=== PATIENT | male | born 1965 | race Caucasian/White ===

== ENCOUNTER 2019-05-19 09:17 | Outpatient (CLI) | payer OTHER, SELFPAY ==
[2019-05-19 10:11] LABS: BUN 11 mg/dL (7-18); Chloride 105 mmol/L (98-107); Glucose 114 mg/dL (70-100); Potassium 4.7 mmol/L (3.5-5.1); Sodium 142 mmol/L (136-145)
== END 2019-05-19 09:37 ==
PROVIDERS: PCP Family Medicine; Visit Provider Family Medicine
DX: E78.5 Hyperlipidemia, unspecified (principal)
CPT/HCPCS: 36415; 80048

== ENCOUNTER 2020-06-19 01:26 | Outpatient (CLI) | payer OTHER, SELFPAY ==
--- NOTE | 2020-06-19 09:00 | ETT_ITS ---
APPROVED REPORT Exam: Exercise Treadmill Patient Location: Out-Patient Room/Bed: Stress Nurse: Kennedi Wise RN BMI: 38.00 Baseline Rhythm: Sinus Rhythm Indications: Chest tightness with TIM and diaphoresis. Medical History Medical History: Smoking, Hyperlipidemia, GERD Cardiac Medications: Atorvastatin. Aspirin. Omeprazole. Allergies: Penicillins Cardiac Risk Factors: Hyperlipidemia, FHX of CAD, Smoking Pretest Chest Pain Characteristics: No chest pain Exercise History: Sedentary Lung Sounds: Clear to auscultation Heart Sounds: Regular Stress Test Details Test: Exercise stress testing was performed using a Uziel protocol. Rest Stress HR Resting HR Supine: 88 bpm Max Heart Rate (APMHR): 165 bpm Resting HR Standin bpm Target HR (85% APMHR): 140 bpm Max HR Achieved: 154 bpm % of APMHR: 93 Recovery HR: 101 bpm HR response to stress: Normal HR response to stress BP Resting BP Supine: 144/82 mmHg Resting BP Standin/82 mmHg Max BP: 196/62 mmHg Recovery BP: 142/76 mmHg BP response to stress: Normal blood pressure response to stress. ECG Resting ECG: Sinus Rhythm Stress ECG: Sinus Tachycardia ST Change: no significant ST segment changes noted. Arrhythmia: None Recovery ECG: Sinus Rhythm Recovery ST Change: Normal Recovery Arrhythmia: None Clinical Reason for Termination: Dyspnea Stress Symptoms: Dyspnea Exercise duration: 7 min31 sec Highest Stage Reached: Stage 3: 3.4 mph at 14% grade. Exercise capacity: 9.41 METs Stress ECG Conclusion 1. The patient exercised for 7 minutes 30 seconds (9 METs). Exercise was stopped due to dyspnea. 2. There was no evidence of ischemia on the EKG portion of the exam. 3. The Wallis Score ( 7) estimates an annual cardiovascular mortality of 0% and a five year survival of 95%. Using the Wallis Score there is a low probability of any angiographic coronary disease. Stress Test Summary STAGE Time (mins) Speed (mph) Grade (%) HR BP SYMPTOMS METS Supine 88 144/82 Standing 91 136/82 1 3 1.7 10 129 152/78 SOB 4.6 2 6 2.5 12 143 174/70 SOB 7 1 min recovery 138 196/62 3 min recovery 108 180/72 SOB resolved. 6 min recovery 101 142/76
== END 2020-06-19 01:46 ==
PROVIDERS: PCP Nurse Practitioner; Visit Provider Family Medicine
DX: R06.09 Other forms of dyspnea; R61 Generalized hyperhidrosis; R07.89 Other chest pain; E78.5 Hyperlipidemia, unspecified; F17.210 Nicotine dependence, cigarettes, uncomplicated; Z80.49 Family history of malignant neoplasm of other genital organs
CPT/HCPCS: 93017

== ENCOUNTER 2020-08-01 03:30 | Outpatient (CLI) | payer OTHER, SELFPAY ==
[2020-08-01 11:04] LABS: Hemoglobin A1C 6.9 % (<5.7)
[2020-08-01 11:39] LABS: Calculated LDL 114 mg/dL (<100); Cholesterol 205 mg/dL (<200); HDL Cholesterol 39 mg/dL (40-60); Triglyceride 262 mg/dL (<150)
== END 2020-08-01 03:50 ==
PROVIDERS: PCP Nurse Practitioner; Visit Provider Nurse Practitioner
DX: E78.5 Hyperlipidemia, unspecified (principal); Z13.1 Encounter for screening for diabetes mellitus
CPT/HCPCS: 36415; 80061; 83036

== ENCOUNTER 2020-08-28 02:52 | Outpatient (CLI) | payer OTHER, SELFPAY ==
[2020-08-29 16:57] LABS: COVID-19 RT-PCR UVMMC Result Negative (Negative)
== END 2020-08-28 03:12 ==
PROVIDERS: PCP Nurse Practitioner; Visit Provider Surgery
DX: Z20.828 Contact with and (suspected) exposure to other viral communicable diseases (principal); Z01.818 Encounter for other preprocedural examination
CPT/HCPCS: U0003

== ENCOUNTER 2020-09-02 06:08 | Day surgery (SDC) | payer OTHER, SELFPAY ==
[2020-09-02 06:20] VITALS: BP 141/92; PULSE 93; RESP 18; TEMP 37.2; O2SAT 93
[2020-09-02] MEDS: Lactated Ringers 1,000 ML 80 ML IV (07:03)
--- NOTE | 2020-09-02 07:29 | W.PM.DSUDISC ---
Discharge Plan Disposition Patient Disposition: HOME Condition: Good Discharge Details Reason For Visit: Umbilical hernia repair with mesh Attending Provider: Meka Quach Primary Care Provider: Daya Triplett Home Meds and New Rx's Prescriptions: Continued atorvastatin [Lipitor] 20 mg tablet 20 mg PO HS Qty: 90 RF: 4 omeprazole 40 mg capsule,delayed release(DR/EC) 40 mg PO DAILY Qty: 90 RF: 4 fluoxetine 20 mg capsule 20 mg PO DAILY Qty: 30 RF: 0 bupropion HCl (smoking deter) 150 mg tablet extended release 12 hr 150 mg PO BID Qty: 90 RF: 0 aspirin [Aspir-81] 81 MG tablet,delayed release (DR/EC) 81 mg PO DAILY RF: 0 Discharge Instructions Additional Instructions: The top bandage can be removed tomorrow. The steri strips will usually stick for about a week. When the edges start to curl up, they can be removed. It is okay to shower tomorrow, the water can run over the steri strips Do not swim or soak in a tub for two weeks Call for any concerns including fever, increased pain, vomiting, incision redness or drainage. Some bruising and swelling is expected. Do not lift more than 15 pounds for four weeks. Walking and stairs are fine. Do not drive if on narcotic pain meds or if limited by pain. May use Tylenol alternating with ibuprofen for pain control. Ice is also an option. The maximum dose for Tylenol is 4000 mg/day. May use ibuprofen 800 mg every 8 hours as needed. If concerned about constipation, you may use a stool softener or milk of magnesia. Referrals: Mana Stout PA [[facility] [employer] DESIGN ARCHITECT] - (Return in 10-14 days for postop check) Activity:: Do not lift more than 15 pounds Remove Dressings/Wound Care:: 24 hours Shower/Bathe:: 24 hours Diet:: As Tolerated Discharge Orders Discharge Orders: Discharge Order (Routine); Ordered 09/02/20 Ordered By: Meka Quach DS: Diagnosis Discharge Diagnosis (1) Umbilical hernia: Status: Acute
[2020-09-02] MEDS: CLINDAMYCIN 900 MG/50 ML BAG 50 MG IVPB (07:34)
[2020-09-02] MEDS: Bupivacaine 0.5% Pres-Free 30 ML VIAL (08:30)
[2020-09-02] MEDS: Lidocaine 2% Multi-Dose 50 ML VIAL (08:30)
--- NOTE | 2020-09-02 08:49 | ROE_ITS ---
Date of service: 09/02/20 Time of Service: 08:49 Operative Note Operative Note DATE OF PROCEDURE: 09/02/20 PRE-OP DIAGNOSIS: Umbilical hernia POST-OP DIAGNOSIS: same PROCEDURE: Umbilical hernia repair with mesh SURGEON: Meka Quach YARDING AND FOLDING MACHINE OPERATOR: Mana Stout ANESTHESIA: MAC and local Indications: This 55 year old man presents with a non-reducible, fat-containing umbilical hernia that is bothersome. Procedure Description: The patient was placed supine on the operating table and the periumbilical region prepped and draped sterilely. The periumbilical skin was infiltrated with local anesthetic. A curvilinear incision was made at the lower aspect of the umbilicus. The moderate sized hernia sac was dissected off the posterior umbilical skin sharply. The hernia sac was dissected free of the surrounding subcutaneous tissue with cautery. The hernia sac was opened to reveal omentum. This was reduced with some pressure required. The fascial defect measuring 2 cm. A 4.6 cm (medium) circular Ventralex mesh was placed behind the fascia with the smooth side down. This was sutured in 4 quadrants with buried interrupted 2-0 Prolene sutures. The fascia was closed over the top of the mesh with a running 0 Vicryl stitch. The posterior umbilical skin was tacked down to the fascia with 0 Vicryl and the deep dermis closed with interrupted 0 Vicryl sutures. The skin was then closed with a running 4 Monocryl subcuticular stitch. He tolerated the procedure well and stable to recovery
[2020-09-02 09:20] VITALS: BP 143/83; PULSE 87; RESP 20; TEMP 36.6; O2SAT 93
== END 2020-09-02 09:47 | disposition home or self-care (01) ==
PROVIDERS: PCP Nurse Practitioner; Visit Provider Surgery
PROC: (CPT 49585; principal; 2020-09-02 07:30)
DX: K42.9 Umbilical hernia without obstruction or gangrene (principal); G47.33 Obstructive sleep apnea (adult) (pediatric); F17.210 Nicotine dependence, cigarettes, uncomplicated; K21.9 Gastro-esophageal reflux disease without esophagitis
CPT/HCPCS: 49585; C1781; J1100; J2405; J2704

== ENCOUNTER 2021-06-15 01:48 | Outpatient (CLI) | payer OTHER, SELFPAY ==
[2021-06-15 16:40] LABS: Hemoglobin A1C 6.4 % (<5.7)
[2021-06-15 16:49] LABS: Calculated LDL 80 mg/dL (<100); Cholesterol 199 mg/dL (<200); HDL Cholesterol 51 mg/dL (40-60); Potassium 4.3 mmol/L (3.5-5.1); Triglyceride 342 mg/dL (<150)
== END 2021-06-15 01:49 | disposition home or self-care (01) ==
LOC: LBO 01:48
PROVIDERS: PCP Nurse Practitioner; Visit Provider Nurse Practitioner
DX: I10 Essential (primary) hypertension (principal); E78.5 Hyperlipidemia, unspecified; R73.03 Prediabetes
CPT/HCPCS: 36415; 80061; 82565; 83036; 84132

== ENCOUNTER 2022-07-16 01:17 | Outpatient (CLI) | payer OTHER, SELFPAY ==
[2022-07-16 12:49] LABS: ALT 59 U/L (16-63); AST 63 U/L (15-37); Alkaline Phosphatase 145 U/L (46-116); Anion Gap 9.8 mmol/L (3-11); BUN 9 mg/dL (7-18); Bilirubin, Total 0.3 mg/dL (0.2-1.0); CO2 25.2 mmol/L (21.0-32.0); CREATININE 0.8 mg/dL (0.70-1.30); Calcium 9.2 mg/dL (8.5-10.1); Calculated LDL 84 mg/dL (<100); Chloride 103 mmol/L (98-107); Cholesterol 192 mg/dL (<200); Estimated GFR 103.22 (mL/min/1.73m2); Glucose 128 mg/dL (74-106); HDL Cholesterol 54 mg/dL (40-60); Potassium 4.1 mmol/L (3.5-5.1); Sodium 138 mmol/L (136-145); Total Protein 7.8 g/dL (6.4-8.2); Triglyceride 272 mg/dL (<150)
== END 2022-07-16 01:18 | disposition home or self-care (01) ==
LOC: LOS 01:17
PROVIDERS: PCP Nurse Practitioner Family; Visit Provider Nurse Practitioner Family
DX: I10 Essential (primary) hypertension (principal); E11.9 Type 2 diabetes mellitus without complications; E78.5 Hyperlipidemia, unspecified; E66.9 Obesity, unspecified
CPT/HCPCS: 36415; 80053; 80061

== ENCOUNTER 2023-03-16 15:24 | Outpatient (CLI) | payer OTHER, SELFPAY ==
--- NOTE | 2023-03-16 15:14 | DI.RAD_ITS ---
Exam(s) XR CHEST 2V PA LATERAL EXAM: XR CHEST 2V PA LATERAL CLINICAL HISTORY: SHORTNESS OF BREATH-R06.02. TECHNIQUE: 2D digital imaging was performed. COMPARISON: No exams were available for comparison FINDINGS: 2 views: Heart size is normal. The mediastinum is not widened. Lungs are clear. No infiltrates nor pleural effusions. IMPRESSION: No acute pulmonary findings. DATA REPOSITORY: RADIATION DOSE DELIVERED:
== END 2023-03-16 15:44 ==
LOC: DI 15:25
PROVIDERS: PCP Nurse Practitioner Family; Visit Provider Nurse Practitioner Family
DX: R06.02 Shortness of breath (principal)
CPT/HCPCS: 71046

== ENCOUNTER 2023-03-20 10:35 | Emergency (ER) | payer OTHER, SELFPAY ==
[2023-03-20] VITALS (30 sets, daily range): BP systolic 116–162; BP diastolic 80–93; PULSE 95–124; RESP 9–29; TEMP 37.1; O2SAT 92–96
--- NOTE | 2023-03-20 12:15 | RT.EKG_ITS ---
APPROVED REPORT Exam: Resting ECG Reason for Exam: lightheaded Patient Location: E HR:109 bpm ECG Measurements Heart Rate 109 AXIS OR 133 P 13 QRSd 87 QRS 37 QT 339 T 22 QTc 458 Conclusion Sinus tachycardia...rate> 99 appropriate intervals normal axis no ST segement or T wave abnormalities to suggest occlusive [place]
--- NOTE | 2023-03-20 12:28 | ED.GENADUL_ITS ---
Discharge Plan Disposition Patient Disposition: Home Discharge Details Clinical Impression: Syncope, Alcohol withdrawal Primary Care Provider: Taisha Cabrera ED Provider: Joellen Smart Home Meds and New Rx's Prescriptions: No Action albuterol sulfate 90 mcg/actuation HFA aerosol inhaler 2 inh inhalation Q6H PRN (Reason: shortness of breath or wheezing) Qty: 18 4RF (DME) BreatheRite MDI Spacer Spacer See Rx Instructions .ROUTE .MEDSUPPLY Qty: 1 0RF Rx Instructions: As directed atorvastatin 40 mg tablet 40 mg PO QPM Qty: 90 4RF fluoxetine 20 mg capsule 20 mg PO DAILY Qty: 90 4RF metformin 500 mg tablet 500 mg PO BID Qty: 180 4RF sildenafil [Viagra] 25 mg tablet 25 mg PO .COMPLEX PRN (Reason: sexual activity) Qty: 20 11RF Rx Instructions: 25 mg orally PRN; 1-2 tabs prior to intercourse omeprazole 40 mg capsule,delayed release(DR/EC) 40 mg PO DAILY Qty: 90 3RF lisinopril 40 mg tablet 40 mg PO DAILY Qty: 90 3RF aspirin [Aspir-81] 81 MG tablet,delayed release (DR/EC) 81 mg PO DAILY Discharge Instructions Instructions: Syncope (ED), Alcohol Withdrawal (ED) Additional Instructions: Call your primary care doctor tomorrow to schedule an appointment to be seen to follow up on your visit here. Cardiology should call you tomorrow as well- if you do not hear from them tomorrow call to schedule an appointment. A referral was placed for alcohol detox if you are interested- they will also call you tomorrow. ALCOHOL WITHDRAWAL CAN BE DEADLY- DO NOT STOP COLD TURKEY. Return to the emergency department for new or worsening symptoms including if you feel like you are going to pass out, have chest pain, or if you have any other concerns. Referrals: [facility] [Provider Group] Medical Decision Making 57yo m with hx HTN, prediabetes, HLD, RICCO, presenting for malaise x 2 weeks and presycnope/syncope x several days. Lightheaded with standing for one week, at least one syncope and fall 3-4 days ago. Tachycardiac on arrival, vital signs otherwise reassuring. Not septic. Exam consistent with ETOH withdrawal; tachycardiac, tremulous, slightly anxious. Patient reports drinking a lot and trying to cut back recently, cannot quantify further. EKG sinus tachycardia, appropriate intervals, no ST segment or T wave abnormalities to suggest occlusive [place]. CXR independently reviewed, agree with radiology read; no pneumonia or pneumothorax. Labs ordered and reviewed; CBC & CMP with no actionable abnormalities, reassuring Hg and electrolytes. Troponin negative x 2. Given tachycardia and syncope, d-dimer ordered and was elevated; CT PE ordered and reviewed, no large PE on my view. Pt advised of hepatic fibrosis and to folllowup with PCP. CIWA 6. Given 2mg PO ativan and tachycardiac and tremors improved, HR in mid 90's. Patient ambualted steadily without lightheadness here in the ED. He would prefer to followup with cardiology on an outpatient basis which is reasonable given his reassuring workup here. Care management aware of patient for cardiology appt and possible ETOH detox; patient would like to quit but does not want to stay in the hospital today. Discharged home; discharge instructions including return precautions were reviewed with patient who verablized understanding. Alll questions were answered and they are in full agreement with the plan. Imaging Data Radiologic Study: Imaging: CT Scan Radiologist's impression: IMPRESSION: 1. ? No pulmonary emboli within the main or proximal segmental pulmonary arteries. Limited assessment of more distal vessels. 2. ? Prominent left and caudate lobes, suggesting hepatic fibrosis. Radiologic Study #2: Imaging: X-Ray Radiologist's impression: IMPRESSION: Hyperinflation. No focal consolidation. Lab Data Lab results reviewed: Yes I reviewed the patient's lab results. Labs: Laboratory Tests Range/Units 03/20/23 03/20/23 03/20/23 11:56 11:56 11:56 WBC (4.4-10.8) 10^3/uL 14.91 H RBC (4.36-5.78) 10^6/uL 4.86 Hgb (13.5-17.5) g/dL 16.1 Hct (40.0-50.0) % 46.3 MCV (80-95) fL 95 MCH (27.0-33.0) pg 33.1 H MCHC (32.0-36.0) % 34.8 RDW (11.8-14.1) % 12.8 Plt Count (130-400) 10^3/uL 328 MPV (8.0-11.0) fL 10.4 Immature Gran % 0.5 Neutrophils % 74.2 Lymphocytes % 16.7 Monocytes % 7.0 Eosinophils % 0.9 Basophils % 0.7 Nucleated RBC % (0.0-0.3) % 0.0 Absolute Neutrophils (1.2-6.7) 10^3/uL 11.06 H Absolute Lymphocytes (1.2-3.4) 10^3/uL 2.49 Absolute Monocytes (0.1-0.8) 10^3/uL 1.04 H Absolute Eosinophils (0.0-0.7) 10^3/uL 0.13 Absolute Basophils (0.0-0.2) 10^3/uL 0.10 D-Dimer (<500) ng/mlFEU 1391 H Sodium (136-145) mmol/L 138 Potassium (3.5-5.1) mmol/L 4.4 Chloride (98-107) mmol/L 99 Carbon Dioxide (21.0-32.0) mmol/L 27.7 Anion Gap (3-11) mmol/L 11.3 H BUN (7-18) mg/dL 9 Creatinine (0.70-1.30) mg/dL 1.0 Est GFR (CKD-EPI 2020) (mL/min/1.73m2) 87.78 Glucose (74-106) mg/dL 106 Calcium (8.5-10.1) mg/dL 9.2 Magnesium (1.8-2.4) mg/dL 1.7 L Total Bilirubin (0.2-1.0) mg/dL 0.8 AST (15-37) U/L 55 H ALT (16-63) U/L 44 Alkaline Phosphatase (46-116) U/L 211 H Troponin I (<or=60) ng/L < 50 Total Protein (6.4-8.2) g/dL 8.2 Albumin (3.4-5.0) g/dL 3.9 Urine Color (Yellow) Urine Clarity (Clear) Urine pH (5-8) Ur Specific [place] (1.005-1.025) Urine Protein (Negative) mg/dL Urine Ketones (Negative) mg/dL Urine Blood (Negative) Urine Nitrite (Negative) Urine Bilirubin (Negative) Urine Urobilinogen (Up to 0.2) mg/dL Ur Leukocyte Esterase (Negative) Urine RBC (0-2) HPF Urine WBC (0-5) HPF Ur Epithelial Cells (Negative) HPF Urine Crystals (Negative) HPF Urine Bacteria (Negative) HPF Urine Casts (Negative) LPF Urine Mucus (Negative) Ur Culture Indicated? Urine Glucose (Negative) mg/dL Range/Units 03/20/23 03/20/23 14:14 16:03 WBC (4.4-10.8) 10^3/uL RBC (4.36-5.78) 10^6/uL Hgb (13.5-17.5) g/dL Hct (40.0-50.0) % MCV (80-95) fL MCH (27.0-33.0) pg MCHC (32.0-36.0) % RDW (11.8-14.1) % Plt Count (130-400) 10^3/uL MPV (8.0-11.0) fL Immature Gran % Neutrophils % Lymphocytes % Monocytes % Eosinophils % Basophils % Nucleated RBC % (0.0-0.3) % Absolute Neutrophils (1.2-6.7) 10^3/uL Absolute Lymphocytes (1.2-3.4) 10^3/uL Absolute Monocytes (0.1-0.8) 10^3/uL Absolute Eosinophils (0.0-0.7) 10^3/uL Absolute Basophils (0.0-0.2) 10^3/uL D-Dimer (<500) ng/mlFEU Sodium (136-145) mmol/L Potassium (3.5-5.1) mmol/L Chloride (98-107) mmol/L Carbon Dioxide (21.0-32.0) mmol/L Anion Gap (3-11) mmol/L BUN (7-18) mg/dL Creatinine (0.70-1.30) mg/dL Est GFR (CKD-EPI 2020) (mL/min/1.73m2) Glucose (74-106) mg/dL Calcium (8.5-10.1) mg/dL Magnesium (1.8-2.4) mg/dL Total Bilirubin (0.2-1.0) mg/dL AST (15-37) U/L ALT (16-63) U/L Alkaline Phosphatase (46-116) U/L Troponin I (<or=60) ng/L < 50 Total Protein (6.4-8.2) g/dL Albumin (3.4-5.0) g/dL Urine Color (Yellow) Yellow Urine Clarity (Clear) Clear Urine pH (5-8) 7.0 Ur Specific [place] (1.005-1.025) 1.015 Urine Protein (Negative) mg/dL Trace H Urine Ketones (Negative) mg/dL Trace H Urine Blood (Negative) Negative Urine Nitrite (Negative) Negative Urine Bilirubin (Negative) Negative Urine Urobilinogen (Up to 0.2) mg/dL 0.2 Ur Leukocyte Esterase (Negative) Negative Urine RBC (0-2) HPF 0-2 Urine WBC (0-5) HPF 0-2 Ur Epithelial Cells (Negative) HPF Moderate Urine Crystals (Negative) HPF Negative Urine Bacteria (Negative) HPF Negative Urine Casts (Negative) LPF Negative Urine Mucus (Negative) Trace Ur Culture Indicated? No Urine Glucose (Negative) mg/dL Negative HPI General Date/Time Provider Initiated Documentation: 03/20/23 11:49 . Limitations to Documentation: no limitations . Information obtained by: patient . HPI Narrative: 57yo m with hx HTN, prediabetes, HLD, RICCO, presenting for malaise x 2 weeks and presycnope/syncope x several days. Symptoms started after traveling to the [facility], flu-like symptoms at that time including fever. Fever has since resolved. Was treated by PCP last week for possible pneumonia, completed abx several days ago, reports normal chest x ray two days ago. Over the past week has felt very lightheaded when standing. Has lost consciousness at least once. Mild shortness of breath, worse when laying flat. No fevers, chills, rash, nausea, vomiting, abdominal pain, dysuria, hematuria, chest pain, LE edema, or other concerns. Related Data Home Medications Medication Instructions Recorded Confirmed aspirin 81 mg tablet,delayed 81 mg PO DAILY 09/17/13 03/16/23 release (Aspir-) atorvastatin 40 mg tablet 40 mg PO QPM #90 tabs 09/09/22 03/16/23 fluoxetine 20 mg capsule 20 mg PO DAILY #90 caps 09/09/22 03/16/23 metformin 500 mg tablet 500 mg PO BID #180 tabs 09/09/22 03/16/23 sildenafil 25 mg tablet (Viagra) 25 mg PO .COMPLEX PRN sexual 09/16/22 03/16/23 activity #20 tabs albuterol sulfate 90 mcg/actuation 2 inh inhalation Q6H PRN shortness 03/10/23 03/16/23 aerosol inhaler of breath or wheezing #18 grams inhalational spacing device #1 ea 03/10/23 03/16/23 (BreatheRite MDI Spacer) lisinopril 40 mg tablet 40 mg PO DAILY #90 tabs 03/17/23 omeprazole 40 mg capsule,delayed 40 mg PO DAILY #90 tab-caps 03/17/23 release Previous Rx's Medication Instructions Recorded atorvastatin 40 mg tablet 40 mg PO QPM #90 tabs 09/09/22 fluoxetine 20 mg capsule 20 mg PO DAILY #90 caps 09/09/22 metformin 500 mg tablet 500 mg PO BID #180 tabs 09/09/22 sildenafil 25 mg tablet (Viagra) 25 mg PO .COMPLEX PRN sexual 09/16/22 activity #20 tabs albuterol sulfate 90 mcg/actuation 2 inh inhalation Q6H PRN shortness 03/10/23 aerosol inhaler of breath or wheezing #18 grams inhalational spacing device #1 ea 03/10/23 (BreatheRite MDI Spacer) lisinopril 40 mg tablet 40 mg PO DAILY #90 tabs 03/17/23 omeprazole 40 mg capsule,delayed 40 mg PO DAILY #90 tab-caps 03/17/23 release Allergies Allergy/AdvReac Type Severity Reaction Status Date / Time Penicillins Allergy Unknown Unknown Verified 03/10/23 13:07 General Stated Complaint: Dizzy/Sync ALVAREZ: 3 Review of Systems Narrative: see HPI PFSH All Active Problems (Updated 03/20/23 @ 16:26 by Joellen Smart MD) Syncope (Chronic) Alcohol withdrawal (Acute) Shortness of breath (Acute) Personal history of nicotine dependence (Acute) 09/2021- ppd Obesity (Chronic) Obstructive sleep apnea (Chronic) bipap Erectile dysfunction (Acute) Numbness and tingling (Acute) Tinea (Acute) Diabetes type 2, controlled (Acute) Hypertension (Chronic) Hyperlipidemia (Acute 01/02/13) Depression (Chronic) Medical History (Updated 03/20/23 @ 16:26 by Joellen Smart MD) Acid reflux Chest pain Chest pain Atypical CP; 01/12 [facility] [place] [facility] Exercise Stress Test: negative; non-cardiac CP Pt. states at one point he had a bursa sack under his breast bone to which he recieved cortisone injections to tx HTN (hypertension) Hyperlipidemia Neck pain of over 3 months duration Rhinitis medicamentosa Situational depression Smoker Smoker (02/24/16) 1 pack per day Venous insufficiency Surgical History (Updated 09/16/20 @ 09:51 by Wendi Silverio MD) Colonoscopy - MAC (04/15/17) History of ventral hernia repair (~09/02/20) umbilical hernia- Dr. Quach Family History Mother Essential hypertension Hypercholesterolemia Hypothyroidism Father Essential hypertension CAD Depression Hypercholesterolemia Alcohol abuse Sister Hyperlipidemia Hypothyroidism Brother Depression Hyperlipidemia Maternal Grandfather , OLD AGE at age 83. No problems noted. Paternal Grandfather No problems noted. Maternal Grandmother No problems noted. Paternal Grandmother Cancer PATERNAL UNCLE Throat cancer Sister No problems noted. MATERNAL UNCLE #2 Myocardial infarction PATERNAL UNCLE #2 Cancer PATERNAL AUNT #2 Heart disease Social History (Updated 07/13/22 @ 11:50 by Naa Redd) Smoking/Tobacco Use Status: Current every day Tobacco Type: cigarettes Tobacco: How many years used: 37 Quit status: considering quitting Second Hand Exposure: Yes Smoking risk assessment performed?: Yes Alcohol Intake: current Alcohol Intake frequency: a few times a week Alcohol type: hard liquor Drug use: Never Substance use type: does not use Caregiver/Support person: No Household members: family Housing: house Communication Needs: None Do you need help understanding health information?: Never Pets and animals: No Sexually active: Yes Do you think of yourself as: straight/heterosexual Current gender identity: male What is your relationship status?: How often do you talk on the phone with friends or family?: once per week How often do you get together with friends or relatives?: three or more times per week How often do you attend judaism or mu-ism services?: decline to answer Do you belong to any clubs or organized social groups?: no Panel score (0-1 are the most socially isolated patients): 1 What type of physical activity do you participate in: none Frequency: does not exercise Cortney/Jew: No preference Special cortney needs: No Seatbelt use: always Helmet use: Yes Helmet use: always Drive intox or ride w/intox driver/guide: No Do you feel safe at home: Yes Do you feel safe in your relationship?: Yes Exam Narrative Exam Narrative: General: Alert, well appearing, well nourished, in no acute distress. Head: Normocephalic, atraumatic Neck: Trachea midline, Neck supple. ENT: MMM. No oropharygeal lesions or exudate. Cardiac: Tachycardiac, regular, no murmurs appreciated Resp: No respiratory distress. CTAB. Abd: Soft, non-distended, nontender : No suprapubic tenderness. No CVA tenderness. Extremities: No deformities. No peripheral edema. Neurologic: GCS 15. Moves all extremities freely against gravity. + tremor Course Vital Signs Vital signs: Vital Signs Temperature 37.1 C 03/20/23 11:03 Pulse 123 H 03/20/23 11:03 Respiratory Rate 18 03/20/23 11:03 Blood Pressure 161/93 H 03/20/23 11:03 Pulse Oximetry 94 03/20/23 11:03 Temperature 37.1 C 03/20/23 11:03 Temperature Source Oral 03/20/23 11:03 Pulse 123 H 03/20/23 11:03 Respiratory Rate 18 03/20/23 11:03 Respiratory Effort Normal 03/20/23 11:11 Blood Pressure 161/93 H 03/20/23 11:03 Blood Pressure Position Sitting 03/20/23 11:03 Pulse Oximetry 94 03/20/23 11:03 Oxygen Delivery Method Room Air 03/20/23 11:03 Oxygen Flow Rate 0 03/20/23 11:03 Pain Level 0 03/20/23 11:03 PAWSS Have you Been Recently Intoxicated or Drunk Within the Last 30 days?: No Have you Ever Experienced Previous Episodes of Alcohol Withdrawal?: No Have you ever Experienced Withdrawal Seizures?: No Have you ever Experienced Delirium Tremens(DT)s?: No Have you ever undergone Alcohol Rehabilitation Treatment (i.e, inpt ot outpatient treatment programs)?: No Have you ever Experienced Blackouts?: No Have you ever Combined Alcohol with other Downers within the last 90 days?: No Have you ever Combined Alcohol with any other Substance of Abuse during the last 90 days?: No Positive Blood Alcohol level on Presentation? [PCS.BAL]: No Evidence of Increased Autonomic Activity (i.e. HR>120, tremor, sweating, agitation, nausea)?: No Result: 0
[2023-03-20 12:48] LABS: Abs Immature Grans 0.07 10^3/uL (0.0-0.06); Absolute Lymphocyte Count 2.49 10^3/uL (1.2-3.4); Basophils % 0.7; Eosinophils % 0.9; HCT 46.3 % (40.0-50.0); HGB 16.1 g/dL (13.5-17.5); Immature Grans % 0.5; Lymphocytes % 16.7; MCH 33.1 pg (27.0-33.0); MCHC 34.8 % (32.0-36.0); MCV 95 fL (80-95); MPV 10.4 fL (8.0-11.0); Neutrophils % 74.2; Platelet Count 328 10^3/uL (130-400); RBC 4.86 10^6/uL (4.36-5.78); RDW 12.8 % (11.8-14.1); RDW-SD 45.5 fL; WBC 14.91 10^3/uL (4.4-10.8)
[2023-03-20 12:49] LABS: Absolute Eosinophil Count 0.13 10^3/uL (0.0-0.7); Absolute Monocyte Count 1.04 10^3/uL (0.1-0.8); Absolute Neutrophil Count 11.06 10^3/uL (1.2-6.7)
--- NOTE | 2023-03-20 13:04 | DI.RAD_ITS ---
Exam(s) XR CHEST 2V PA LATERAL EXAM: XR CHEST 2V PA LATERAL CLINICAL HISTORY: lightheaded, recent tx for pneumonia. TECHNIQUE: 2D digital imaging was performed. COMPARISON: CR XR CHEST 2V PA LATERAL from 03/16/2023 FINDINGS: 2 views: Heart size is normal. The mediastinum is not widened. Lungs are clear. No infiltrates nor pleural effusions. IMPRESSION: No acute pulmonary findings.No significant change compared to 03/16/2023. DATA REPOSITORY: RADIATION DOSE DELIVERED:
[2023-03-20 13:08] LABS: ALT 44 U/L (16-63); AST 55 U/L (15-37); Albumin 3.9 g/dL (3.4-5.0); Alkaline Phosphatase 211 U/L (46-116); Anion Gap 11.3 mmol/L (3-11); BUN 9 mg/dL (7-18); Bilirubin, Total 0.8 mg/dL (0.2-1.0); CO2 27.7 mmol/L (21.0-32.0); Calcium 9.2 mg/dL (8.5-10.1); Chloride 99 mmol/L (98-107); Estimated GFR 87.78 (mL/min/1.73m2); Glucose 106 mg/dL (74-106); Magnesium 1.7 mg/dL (1.8-2.4); Potassium 4.4 mmol/L (3.5-5.1); Sodium 138 mmol/L (136-145); Total Protein 8.2 g/dL (6.4-8.2); Troponin I < 50 ng/L (<or=60)
[2023-03-20] MEDS: Normal Saline 1,000 ML 1000 ML IV (13:21)
--- NOTE | 2023-03-20 13:32 | DI.VRAD_ITS ---
PROCEDURE INFORMATION: Exam: XR Chest Exam date and time: 03/20/2023 1:01 PM Age: 57 years old Clinical indication: Patient HX: Lightheaded, recent tx for pneumonia TECHNIQUE: Imaging protocol: Radiologic exam of the chest. Views: 2 views. COMPARISON: CR XR CHEST 2V PA LATERAL 03/16/2023 3:10 PM FINDINGS: Lungs: Hyperinflation. No focal consolidation. Pleural spaces: Unremarkable. No pleural effusion. No pneumothorax. Heart/Mediastinum: Unremarkable. No cardiomegaly. Bones/joints: Unremarkable. IMPRESSION: Hyperinflation. No focal consolidation. Dictated and Authenticated by: Kate Radford MD. Ordering:RY Cuenca MD
[2023-03-20 13:59] LABS: D-Dimer 1391 ng/mlFEU (<500)
--- NOTE | 2023-03-20 14:00 | DI.CT_ITS ---
Exam(s) CT CHEST PE CTA EXAM: CT CHEST PE CTA CLINICAL HISTORY: tachycardia SOB syncope. TECHNIQUE: Imaging Protocol: CT angiography of the chest was performed using pulmonary embolus aj col. Multi planar reconstructions were performed. CONTRAST MATERIAL: Intravenous: Omnipaque 350 Contrast volume: 100 cc COMPARISON: No exams were available for comparison FINDINGS: CHEST: PULMONARY ARTERIES: Less than optimal opacification of the most distal pulmonary arterial tree. Ther e are no obvious intraluminal filling defects to suggest acute pulmonary emboli, realizing limitation s of this study.. LUNGS: There are no infiltrates nor evidence of pulmonary infarction.. No significant pulmonary nodul es. No pleural effusions. MEDIASTINUM: There is no hilar nor mediastinal adenopathy. Visualized thyroid unremarkable. CARDIAC: Heart size normal. No pericardial effusion.Caliber of the thoracic aorta is within normal l imits. No dissection. There is no significant shift of the interventricular septum. PARTIALLY VISUALIZED UPPERMOST ABDOMEN: Hepatomegaly and hepatic steatosis. No splenomegaly. No asc ites. Partially visualized adrenals unremarkable. OSSEOUS: No significant osseous lesions.No fractures.. IMPRESSION: 1. No evidence of obvious acute pulmonary emboli. No evidence of pulmonary infarction.No confluent l anai infiltrates. No pleural effusions. 2. No aortic dissection. No pericardial effusion. Heart size normal. 3. Enlarged and fatty liver. RADIATION DOSE DELIVERED: 567.36mGy.cm Total DLP DATA REPOSITORY: All CT scans at this facility are submitted to the National Radiology Data Registry (NRDR) Dose Index Registry (DIR) with the [employer] ([employer]). RADIATION OPTIMIZATION: All CT scans at this facility use at least one of these dose optimization te chniques: automated exposure control; mA and/or kV adjustment per patient size (includes targeted exa ms where dose is matched to clinical indication); or iterative reconstruction.
[2023-03-20 14:25] LABS: Bilirubin Negative (Negative); Blood Negative (Negative); Clarity Clear (Clear); Glucose Negative (Negative); Ketones Trace mg/dL (Negative); Leukocyte Esterase Negative (Negative); Nitrite Negative (Negative); Specific Gravity 1.015 (1.005-1.025); Urobilinogen 0.2 mg/dL (Up to 0.2)
[2023-03-20] MEDS: Normal Saline Flush 10 ML SYR IVP (14:27)
[2023-03-20] MEDS: Omnipaque 350 MG/ML 100 ML BTL IJ (14:28)
[2023-03-20] MEDS: Normal Saline - Diluent 50 ML VIAL IJ (14:28)
[2023-03-20 14:34] LABS: Bacteria Negative HPF (Negative); C & S Indicated? No; Casts Negative LPF (Negative); Crystals Negative HPF (Negative); Epithelial Cells Moderate HPF (Negative); Mucus Trace (Negative); RBC 0-2 HPF (0-2); WBC 0-2 HPF (0-5)
--- NOTE | 2023-03-20 15:19 | DI.VRAD_ITS ---
PROCEDURE INFORMATION: Exam: CTA Chest With Contrast Exam date and time: 03/20/2023 2:29 PM Age: 57 years old Clinical indication: Other: Tachycardia, SOB syncope TECHNIQUE: Imaging protocol: Computed tomographic angiography of the chest with contrast. Exam focused on the arteries. 3D rendering (Not supervised by radiologist): MIP and/or 3D reconstructed images were created by the technologist. Radiation optimization: All CT scans at this facility use at least one of these dose optimization techniques: automated exposure control; mA and/or kV adjustment per patient size (includes targeted exams where dose is matched to clinical indication); or iterative reconstruction. Contrast material: OMNIPAQUE 350; Contrast volume: 100 ml; Contrast route: INTRAVENOUS (IV); COMPARISON: CR XR CHEST 2V PA LATERAL 03/20/2023 1:01 PM FINDINGS: Pulmonary arteries: Pulmonary arteries are adequately opacified to the proximal segmental level. No pulmonary emboli within the main or proximal segmental pulmonary arteries. Limited assessment of more distal pulmonary arteries secondary to timing of bolus and streak artifact. Aorta: Unremarkable. No aortic aneurysm. No aortic dissection. Lungs: Unremarkable. No consolidation. No masses. Pleural spaces: Unremarkable. No pneumothorax. No pleural effusion. Heart: Unremarkable. No cardiomegaly. No pericardial effusion. Lymph nodes: Unremarkable. No enlarged lymph nodes. Liver: Prominent left and caudate lobes, suggesting hepatic fibrosis. Bones/joints: Mild degenerative change of the spine. No acute fracture. Soft tissues: Unremarkable. IMPRESSION: 1. No pulmonary emboli within the main or proximal segmental pulmonary arteries. Limited assessment of more distal vessels. 2. Prominent left and caudate lobes, suggesting hepatic fibrosis. Dictated and Authenticated by: Kate Radford MD. Ordering:RY Cuenca MD
--- NOTE | 2023-03-20 15:40 | NUR.NOTE ---
Referral to Cardiology for syncope for the next avail per Dr. Smart. Put the referral in the care transitions manager's box for follow up assistance.Nursing Note:
[2023-03-20] MEDS: LORazepam 1 MG TAB 2 MG PO (15:49)
--- NOTE | 2023-03-20 15:50 | NUR.NOTE ---
Referral to care mgmt for alcohol/detox withdrawal referral. Patient not interested in waiting around any longer in the ER for a girls tennis coach to come in and talk to him.Nursing Note:
[2023-03-20 16:26] LABS: Troponin I < 50 ng/L (<or=60)
== END 2023-03-20 16:59 | disposition home or self-care (01) ==
PROVIDERS: Emergency Provider Student in an Organized Health Care Education/Training Program; PCP Nurse Practitioner Family
DX: R55 Syncope and collapse (principal); F10.930 Alcohol use, unspecified with withdrawal, uncomplicated
CPT/HCPCS: 71275; 80053; 93005; 96360; 96361; 99285; 71046; 81003; 81015; 83735; 84484; 85025; 85379; 93010; 99284; J3490

== ENCOUNTER 2023-08-04 16:08 | Outpatient (REF) | payer OTHER, SELFPAY ==
[2023-08-04 21:13] LABS: HCT 42.7 % (40.0-50.0); HGB 13.8 g/dL (13.5-17.5); MCH 30.1 pg (27.0-33.0); MCHC 32.3 % (32.0-36.0); MCV 93 fL (80-95); MPV 11.3 fL (8.0-11.0); Platelet Count 216 10^3/uL (130-400); RBC 4.58 10^6/uL (4.36-5.78); RDW 13.4 % (11.8-14.1); RDW-SD 45.6 fL; WBC 8.27 10^3/uL (4.4-10.8)
[2023-08-04 21:24] LABS: ALT 37 U/L (16-63); AST 27 U/L (15-37); Albumin 3.8 g/dL (3.4-5.0); Alkaline Phosphatase 141 U/L (46-116); Anion Gap 8.9 mmol/L (3-11); BUN 9 mg/dL (7-18); Bilirubin, Total 0.3 mg/dL (0.2-1.0); CO2 28.1 mmol/L (21.0-32.0); CREATININE 0.8 mg/dL (0.70-1.30); Calcium 9.4 mg/dL (8.5-10.1); Calculated LDL 87 mg/dL (<100); Chloride 104 mmol/L (98-107); Cholesterol 162 mg/dL (<200); Estimated GFR 102.58 (mL/min/1.73m2); Glucose 98 mg/dL (74-106); HDL Cholesterol 37 mg/dL (40-60); Potassium 4.4 mmol/L (3.5-5.1); Sodium 141 mmol/L (136-145); TSH (W/Ref FT4) 1.48 uIU/mL (0.36-3.74); Total Protein 7.2 g/dL (6.4-8.2); Triglyceride 192 mg/dL (<150)
[2023-08-04 21:37] LABS: Bilirubin, Direct 0.1 mg/dL (0.0-0.2)
[2023-08-04 21:48] LABS: Hemoglobin A1C 6.8 % (<5.7)
== END 2023-08-04 16:09 | disposition home or self-care (01) ==
LOC: LBN 16:08
PROVIDERS: PCP Nurse Practitioner Family; Visit Provider Nurse Practitioner Family
DX: R74.8 Abnormal levels of other serum enzymes (principal); E11.9 Type 2 diabetes mellitus without complications; E78.5 Hyperlipidemia, unspecified; F10.20 Alcohol dependence, uncomplicated; F32.9 Major depressive disorder, single episode, unspecified; I10 Essential (primary) hypertension; Z00.00 Encounter for general adult medical examination without abnormal findings
CPT/HCPCS: 80053; 80061; 80076; 85027; 83036; 84443

== ENCOUNTER → 2023-08-22 00:30 | Outpatient (CLI) | payer OTHER, SELFPAY ==
--- NOTE | 2023-08-22 10:27 | DI.RAD_ITS ---
Exam(s) XR SHOULDER LT COMPLETE 2+V EXAM: XR SHOULDER LT COMPLETE 2+V CLINICAL HISTORY: LT SHOULDER PAIN,M25.512,WEAKNESS,h/o fall,[id number]. TECHNIQUE: 2D digital imaging was performed of the left shoulder. Five images were obtained. AP, G rashey, Y-view and axillary views were obtained. COMPARISON: CR XR CHEST 2V PA LATERAL from 03/16/2023 CR,XR XR CHEST 2V PA LATERAL from 03/20/2023 FINDINGS: BONES: No acute fracture is present. No bony destructive lesion is seen. Bony productive changes are again seen at the undersurface of the distal clavicle. JOINTS: The alignment of the acromioclavicular joint is unchanged. Mild degenerative changes are see n at the glenohumeral joint. SOFT TISSUE: The visualized lung is clear. Calcification is again seen adjacent to the proximal meta physis of the left humerus. IMPRESSION: 1. Chronic changes seen around the left shoulder including degenerative changes at both the acromiocl avicular and glenohumeral joints. Stable deformity at the acromioclavicular joint. 2. No acute fracture or dislocation. DATA REPOSITORY: RADIATION DOSE DELIVERED:
== END ==
PROVIDERS: PCP Nurse Practitioner Family; Visit Provider Nurse Practitioner Adult Health
DX: M19.012 Primary osteoarthritis, left shoulder (principal)
CPT/HCPCS: 73030

== ENCOUNTER → 2024-03-02 00:53 | Outpatient (CLI) | payer OTHER, SELFPAY ==
--- NOTE | 2024-03-02 07:30 | DI.MRI_ITS ---
Exam(s) MR UPPER JOINT LT WO EXAM: MR UPPER JOINT LT WO CLINICAL HISTORY: L SHOULDER PAIN,lt rotator cuff tear,m75.102. TECHNIQUE: Multiplanar multisequence MRI was performed. COMPARISON: CR XR CHEST 2V PA LATERAL from 03/16/2023 CR XR SHOULDER LT COMPLETE 2+V from 08/22/2023 FINDINGS: BONES: There is no fracture or contusion pattern. JOINTS: There is stable alignment of the left acromioclavicular joint. Bony productive changes are a gain seen at the inferior aspect of the distal clavicle. Degenerative changes are seen at the acromi oclavicular joint. There is superior subluxation of the glenohumeral joint. TENDONS: Supraspinatus: There is a full thickness tear of the supraspinatus tendon with retraction to the leve l of the acromioclavicular joint. Infraspinatus: There is tendinosis of the infraspinatus tendon findings suggestive of at least a part ial tear superiorly. Subscapularis: Unremarkable. Teres Minor: Unremarkable. Biceps and [place]: There appears to be medial subluxation of the long head of the biceps. There is i ntermediate signal in the long head suggesting tendinosis. MUSCLES: There is fatty atrophy of both the supraspinatus and infraspinatus muscles. GLENOID LABRUM: Unremarkable on this noncontrast examination. SOFT TISSUES: Unremarkable. LIGAMENTS: The cortical clavicular ligament is incompletely imaged on the coronal images but is seen on the sagittal images. There is an osseous density seen within the fibers of the ligament. This is best appreciated on the sagittal images. OTHER: There is fluid seen in the subacromial subdeltoid bursa consistent with a rotator cuff tear. IMPRESSION: 1. Supraspinatus full-thickness tear with retraction to the level of the acromioclavicular joint. Th ere is resultant superior subluxation of the humeral head relative to the glenoid. At least a partia l tear is seen of the infraspinatus tendon. 2. Stable alignment of the acromioclavicular joint which may reflect prior distal clavicular fracture . 3. Tendinosis of the infraspinatus and biceps tendon. 4. Fatty atrophy of the supraspinatus and infraspinatus muscles. DATA REPOSITORY:
== END ==
PROVIDERS: PCP Nurse Practitioner Family; Visit Provider Student in an Organized Health Care Education/Training Program
DX: M75.102 Unspecified rotator cuff tear or rupture of left shoulder, not specified as traumatic (principal)
CPT/HCPCS: 73221

== ENCOUNTER 2024-04-18 09:39 | Outpatient (CLI) | payer OTHER, SELFPAY ==
[2024-04-18 09:55] LABS: Hemoglobin A1C 8.2 % (<5.7)
== END 2024-04-18 09:40 | disposition home or self-care (01) ==
LOC: LBO 09:40
PROVIDERS: PCP Nurse Practitioner Family; Visit Provider Student in an Organized Health Care Education/Training Program
DX: E11.9 Type 2 diabetes mellitus without complications (principal)
CPT/HCPCS: 36415; 83036